=== PATIENT | female | born 1980 | race Caucasian/White ===

== ENCOUNTER 2022-02-19 18:07 | Emergency (ER) | payer OTHER, SELFPAY ==
[2022-02-19 18:13] VITALS: BP 108/81; PULSE 70; RESP 18; TEMP 37.3; O2SAT 99
--- NOTE | 2022-02-19 18:37 | ED.GENADULT ---
HPI - General Adult General Chief complaint: Nausea/Vomiting/Diarrhea Stated complaint: N/V Time Seen by Provider: 02/19/22 18:11 History of Present Illness HPI narrative: This is a 42-year-old female with a history of chronic marijuana use presented to ED with 4 days of nausea and vomiting. Patient says she has been having multiple episodes of nonbloody nonbilious vomiting since Wednesday. Two days ago she started developed periumbilical abdominal pain that is nonradiating, 10 out 10 intensity and gradually getting worse. She has never experienced pain like this before. It is alleviated by hot showers. There are no exacerbating symptoms. Patient is a daily marijuana user. She denies fever, chills, chest pain, difficulty breathing, urinary symptoms. She has had a total abdominal hysterectomy and no longer has periods. Related Data Allergies Allergy/AdvReac Type Severity Reaction Status Date / Time morphine AdvReac Nausea and Verified 02/19/22 18:26 Vomiting Review of Systems Review of Systems: CONSTITUTIONAL: Denies night sweats. EYES: No eye pain ENT: Denies rhinorrhea CARDIOVASCULAR: Denies palpitations RESPIRATORY: Denies hemoptysis GASTROINTESTINAL: Denies hematemesis GENITOURINARY: Denies hematuria. SKIN: Denies rash MUSCULOSKELETAL: Denies myalgia. NEUROLOGIC: Denies weakness. PSYCHIATRIC: Denies delusions PMFSH Surgical History Surgical History H/O: hysterectomy History of cholecystectomy Social History Social History Social History: patient drinks alcohol occasionally, uses a vape and uses marijuana daily Exam Narrative: APPEARANCE: patient is curled up in a position crying. Head atraumatic. EYES: PERRLA/EOMI, NOSE: Normal no drainage NECK: Supple, Trachea midline RESPIRATORY: CTAB, No increased work of breathing. CARDIOVASCULAR: S1S2 appreciated ABDOMINAL: Soft, nontender, nondistended, No guarding or rebound MUSCULOSKELETAl: No obvious deformities NEURO: Alert. Moving 4/4 extremities SKIN:: Warm, dry. Normal color PSYCHIATRIC: Normal affect Course Vital Signs Vital signs: Vital Signs Temperature 99.1 F 02/19/22 18:13 Pulse Rate 70 02/19/22 18:13 Respiratory Rate 18 02/19/22 18:13 Blood Pressure 108/81 02/19/22 18:13 Pulse Oximetry 99 02/19/22 18:13 Oxygen Delivery Room Air 02/19/22 18:13 Temperature 99.1 F 02/19/22 18:13 Pulse Rate 61 02/19/22 20:16 Respiratory Rate 25 H 02/19/22 20:16 Blood Pressure 150/83 H 02/19/22 20:16 Pulse Oximetry 99 02/19/22 19:31 Oxygen Delivery Room Air 02/19/22 18:13 Medical Decision Making MDM Narrative Medical decision making narrative: this is a 42-year-old female presenting with nausea vomiting and abdominal pain. Her history and physical are consistent with cyclic vomiting. Patient will be given Haldol, Zofran and Pepcid. She was given 2 L of fluid. Comprehensive metabolic panel CBC and lipase have been ordered. patient's lab work was significant for leukocytosis and elevated hemoglobin which represent hemoconcentration. The patient was given another L of fluids. She was still having some episodes of nausea so she was given Compazine with Benadryl. At this time the patient is resting comfortably. After she received 3 L of fluid I repeated her lab work and her white blood cell count and hemoglobin are trending in the correct direction. Repeat abdominal exam is benign with no tenderness guarding or rebound. The patient is able to take small sips of water. I discussed the option of an inpatient admission for continued fluid hydration but the patient refused. She would like to be discharged home with strict return precautions if her condition does not improve in the morning. The patient will be discharged home with prescriptions for Zofran and Pepcid. Vital Signs Vital Sign
[2022-02-19] MEDS: ONDANSETRON INJ 4 MG/2 ML VIAL 8 MG IV PUSH (18:40)
[2022-02-19] MEDS: LACTATED RINGERS 2,000 ML 999 ML IV CONT (18:41)
[2022-02-19] MEDS: FAMOTIDINE 20 MG/2 ML VIAL IV PUSH (18:41)
[2022-02-19] MEDS: HALOPERIDOL LACTATE 5 MG/ML VIAL IV PUSH (18:43)
[2022-02-19 18:48] LABS: Basophils Absolute Auto 0.1 K/mm3 (0.0-0.1); Basophils Percent Auto 0.3 % (0.2-1.2); Immature Granulocyte Percent A 0.5 % (0-0.5); Lymphocytes Absolute Auto 1.97 K/mm3 (0.9-3.2); Lymphocytes Percent Auto 10.6 % (18.3-44.2); Mean Corpuscular HGB Conc 33.9 g/dl (32-36); Mean Corpuscular Hemoglobin 32.4 pg (26-34); Mean Corpuscular Volume 95.5 fl (80-100); Mean Platelet Volume 10.8 fl (7.4-10.4); Monocytes Percent Auto 5.3 % (2.6-8.5); Neutrophils Absolute Auto 15.5 K/mm3 (1.3-6.7); Neutrophils Percent Auto 83.3 % (45.5-73.1); Platelet Count Result 247 k/mm3 (150-375); Red Blood Count 6.18 M/mm3 (4.2-5.4); Red Cell Distribution Width 12.7 % (11.5-14.5); White Blood Count 18.6 K/mm3 (4.5-10.0)
[2022-02-19 18:56] LABS: Alanine Aminotransferase 31 U/L (6-35); Albumin Level 5.5 g/dL (3.5-5.1); Alkaline Phosphatase 91 U/L (38-126); Anion Gap 18 mmol/L (8-16); Aspartate Amino Transferase 46 U/L (14-36); Bilirubin,Total 2.6 mg/dL (0.2-1.3); Blood Urea Nitrogen 20 mg/dL (7-17); Calcium 10.1 mg/dL (8.4-10.2); Carbon Dioxide 22 mmol/L (22-30); Chloride 100 mmol/L (98-107); Estimated CRCL calculation 89 ml/min; Estimated Glomerular Filt Rate > 60; Glucose 116 mg/dL (65-110); Lipase 260 U/L (23-300); Potassium 3.6 mmol/L (3.4-5.0); Sodium 140 mmol/L (137-145)
[2022-02-19 19:31] VITALS: BP 159/93; PULSE 58; RESP 20; O2SAT 99
[2022-02-19] MEDS: diphenhydrAMINE HCl INJ 50 MG/ML VIAL 25 MG IV PUSH (19:34)
[2022-02-19] MEDS: PROCHLORPERAZINE EDISYLATE 10 MG/2 ML VIAL IV PUSH (19:35)
[2022-02-19 19:47] VITALS: BP 155/74; PULSE 58; RESP 14
[2022-02-19 20:01] VITALS: BP 145/75; PULSE 60; RESP 14
[2022-02-19] MEDS: LACTATED RINGERS 1,000 ML 999 ML IV CONT (20:03)
[2022-02-19 20:16] VITALS: BP 150/83; PULSE 61; RESP 25
[2022-02-19 20:49] LABS: Basophils Percent Auto 0.2 % (0.2-1.2); Eosinophils Percent Auto 0.1 % (0-4.4); Hematocrit 48.3 % (37.0-47.0); Immature Granulocyte Absolute 0.06 K/mm3 (0.00-0.031); Immature Granulocyte Percent A 0.4 % (0-0.5); Lymphocytes Absolute Auto 1.26 K/mm3 (0.9-3.2); Mean Corpuscular HGB Conc 33.1 g/dl (32-36); Mean Corpuscular Hemoglobin 32.5 pg (26-34); Mean Corpuscular Volume 98.2 fl (80-100); Mean Platelet Volume 11.3 fl (7.4-10.4); Monocytes Absolute Auto 0.8 K/mm3 (0.1-0.6); Monocytes Percent Auto 5.6 % (2.6-8.5); Neutrophils Absolute Auto 11.9 K/mm3 (1.3-6.7); Neutrophils Percent Auto 84.7 % (45.5-73.1); Platelet Count Result 164 k/mm3 (150-375); Red Blood Count 4.92 M/mm3 (4.2-5.4); Red Cell Distribution Width 12.4 % (11.5-14.5)
[2022-02-19 21:02] LABS: Anion Gap 13 mmol/L (8-16); Blood Urea Nitrogen 17 mg/dL (7-17); Calcium 8.1 mg/dL (8.4-10.2); Carbon Dioxide 20 mmol/L (22-30); Chloride 105 mmol/L (98-107); Estimated CRCL calculation 120 ml/min; Estimated Glomerular Filt Rate > 60; Glucose 101 mg/dL (65-110); Potassium 4.1 mmol/L (3.4-5.0); Sodium 138 mmol/L (137-145)
[2022-02-19 21:28] VITALS: BP 137/88; PULSE 52; RESP 18; O2SAT 99
== END 2022-02-19 21:44 | disposition home or self-care (01) ==
LOC: ANHED 19:13
PROVIDERS: Emergency Provider Emergency Medicine
DX: R11.2 Nausea with vomiting, unspecified (principal); F12.90 Cannabis use, unspecified, uncomplicated
CPT/HCPCS: 36415; 80048; 80053; 83690; 85025; 96361; 96374; 96375; 99284; J0780; J1200; J1630; J2405; J7120